=== PATIENT | male | born 1955 | race African-American/Black ===

== ENCOUNTER 2024-02-03 22:08 | Emergency (ER) | payer OTHER ==
[~2024-02-03] VITALS: Ht 177.8 cm; Wt 100.0 kg
[2024-02-03 22:18] VITALS: O2SAT 97
[2024-02-03 22:52] VITALS: BP 156/95; PULSE 71; RESP 18; TEMP 98.3; O2SAT 100
[2024-02-03] MEDS ORDERED: ACETAMINOPHEN 500MG TABLET PO ONE (23:00)
[2024-02-03] MEDS ORDERED: ACETAMINOPHEN 500MG TABLET PO NR (23:45)
== END 2024-02-04 01:45 | disposition left against medical advice (07) ==
LOC: ER 22:08
DX: R03.0 Elevated blood-pressure reading, without diagnosis of hypertension (principal)
CPT/HCPCS: 99281